=== PATIENT | male | born 1955 | race Hispanic/Latino ===

== ENCOUNTER 2017-09-29 10:22 | Day surgery (SDC) | payer BC ==
[2017-09-27 14:29] LABS: Absolute Lymphocytes (CBC) 3.6 K/uL (0.7-4.9); Absolute Monocytes 0.8 K/uL (0.1-1.3); Absolute Neutrophil 6.4 K/uL (1.8-8.0); Basophils % 2.2 % (0-1.3); Eosinophils % 1.7 % (0-4.4); Hematocrit 44.8 % (39.6-49.0); Lymphocytes % 32.3 % (15.3-44.8); MCV 96.6 fL (80-100); MPV 9.3 fL (7.6-11.3); RBC Red Blood Cell Count 4.64 M/uL (4.33-5.43)
--- NOTE | 2017-09-27 14:32 | RAD REPORT ---
EXAM DESCRIPTION: Matthew Ladd (2 Views)09/27/2017 2:12 pm CLINICAL HISTORY: Hypertension/preop COMPARISON: None FINDINGS: The lungs appear clear of acute infiltrate. The heart is normal size IMPRESSION: No acute abnormalities displayed
[2017-09-27 14:43] LABS: Urine Appearance CLEAR; Urine Bilirubin NEGATIVE (NEG); Urine Blood NEGATIVE (NEG); Urine Color YELLOW; Urine Glucose NEGATIVE (NEG); Urine Protein NEGATIVE (NEG); Urine Specific Gravity 1.015 (1.005-1.030); Urine Urobilinogen 0.2 mg/dL (0.2-1.0)
[2017-09-27 14:49] LABS: Urine Microscopic Reflex NO UMIC
[2017-09-27 14:56] LABS: Protime INR 0.97
[2017-09-27 15:19] LABS: BUN Blood Urea Nitrogen 13 mg/dL (6-20); Bicarbonate 26 mEq/L (21-31); Glucose Level 94 mg/dL (65-120); Potassium 4.4 mEq/L (3.6-5.0); Sodium Level 141 mEq/L (135-145)
--- NOTE | 2017-09-27 15:24 | EKG ---
Test Date: 2017-09-27 Test Time: 13:59:07 [employer]: MEASUREMENT RESULTS: Intervals: Rate: 64 NE: 150 QRSD: 92 QT: 412 QTc: 425 [place]: P: 38 NE: 150 QRS: 56 T: 37 INTERPRETIVE STATEMENTS: Normal sinus rhythm Normal ECG No previous ECG available for comparison Electronically Signed On 09-27-17 15:23:09 CDT by Tian Eason
[2017-09-29] MEDS ORDERED: Ringers Lactate 1,000 ML IV ONE ×2 (10:40→13:11)
[2017-09-29] MEDS ORDERED: GENTAMICIN 80 MG/100 ML BAG 80 MG/100 ML BAG IV ONE (10:40)
[2017-09-29] MEDS ORDERED: PROPOFOL 200 MG/20 ML VIAL IV ONE (12:14)
[2017-09-29] MEDS ORDERED: MIDAZOLAM HCL 2 MG/2 ML INJ ONE (12:14)
[2017-09-29] MEDS ORDERED: LIDOCAINE 2% MPF 5 ML VIAL ONE (12:14)
[2017-09-29] MEDS ORDERED: FENTANYL CITR 100 MCG/2 ML ONE (12:14)
[2017-09-29] MEDS ORDERED: ONDANSETRON 4 MG/2 ML VIAL ONE (12:49)
[2017-09-29] MEDS ORDERED: OXYBUTYNIN CHLORIDE 5 MG TAB ONE (14:14)
[2017-09-29] MEDS ORDERED: HYDROCODONE/APAP 5/325 MG TAB ONE (15:17)
== END 2017-09-29 15:42 | disposition home or self-care (01) ==
LOC: OR 10:22
PROVIDERS: ATTEND Urology
PROC: 0T7D8DZ Dilation of Urethra with Intraluminal Device, Via Natural or Artificial Opening Endoscopic (ICD-10-PCS; principal; 2017-09-29 12:00)
DX: N40.1 Benign prostatic hyperplasia with lower urinary tract symptoms (principal); R39.12 Poor urinary stream; I10 Essential (primary) hypertension; E78.00 Pure hypercholesterolemia, unspecified
CPT/HCPCS: 36415; 71046; 80048; 81003; 85025; 85610; 85730; 87086; 87088; 93005; J1580; J2250; J2405; J3010